=== PATIENT | male | born 1990 | race Caucasian/White ===

== ENCOUNTER 2022-04-04 07:58 | Day surgery (SDC) | payer OTHER ==
[2022-04-04] VITALS (120 sets, daily range): BP systolic 81–137; BP diastolic 35–104
[~2022-04-04] VITALS: Ht 172.7 cm; Wt 96.0 kg
--- NOTE | 2022-04-04 07:47 | NUR ---
PPT ARRIVES AMBULATORY TO FLOOR WITH PARENTS IN ATTENDANCE. UPDATED ON POC AND ORIENTED TO ROOM. INITIATED IV, LABS DRAWN AND EKG PERFORMED. ALL CONSENTS OBTAINED.
--- NOTE | 2022-04-04 08:11 | NUR ---
VS CALLED TO DR. CORTEZ AT THIS TIME. NEW ORDERS RECEIVED WILL MEDICATE WHEN MEDICATIONS PROFILED AND CONTINUE TO MONITOR.
[2022-04-04 08:30] LABS: HEMATOCRIT 41.9 % (39.0-50.0); HEMOGLOBIN 14.7 g/dl (14.0-18.0); IMMATURE GRANULOCYTES 0.1 % (0.0-5.0); MEAN CELL VOLUME 86.7 fL CALC (80.0-100.0); MEAN CORPUSCULAR HGB 30.4 pG CALC (26.0-32.0); MEAN CORPUSCULAR HGB CONC 35.1 g/dL CAL (32.0-36.0); NEUT# 3.15 thou/uL (1.82-7.42); RED BLOOD COUNT 4.83 mill/uL (4.70-6.10); RED CELL DISTRI WIDTH 12.1 % (11.5-15.5)
[2022-04-04 08:43] LABS: ALBUMIN 4.6 g/dL (3.2-5.0); ALKALINE PHOSPHATASE 66 u/l (38-126); ANION GAP 13 (6-22 (CALC)); BILIRUBIN, TOTAL 0.6 mg/dL (0.0-1.4); BUN 16 mg/dL (9-20); BUN/CREATININE RATIO 14 (12-20 (CALC)); CARBON DIOXIDE 28 mmol/l (22-30); CHLORIDE 103 mmol/l (95-108); CREATININE 1.1 mg/dL (0.7-1.3); GFR FOR AFR.AMER. > 60 ML/MIN (>=60 (CALC)); GFR OTHER RACES > 60 ML/MIN (>=60 (CALC)); SGOT/AST 24 u/l (17-59); SODIUM 140 mmol/l (137-146); TOTAL PROTEIN 7.6 g/dL (6.3-8.2)
--- NOTE | 2022-04-04 09:45 | NUR ---
PT SITTING UP IN BED CALM AND COOPERATIVE. REPEAT VS OBTAINED AND COMMUNICATED TO DR CORTEZ, NEW ORDERS RECEIVED. IVF BOLUS CONTINUES. SITE PATENT,
--- NOTE | 2022-04-04 09:50 | NUR ---
REPEAT VS CALLED TO DR. CORTEZ. NEW ORDERS RECEIVED AT THIS TIME.
[2022-04-04] MEDS ORDERED: LEVOTHYROXIN150 MCG PO (10:27)
--- NOTE | 2022-04-04 12:05 | NUR ---
Induction Note Patient to [facility]R procedure room. Time out performed at 1210. Patient placed on monitors, Amos hugger, bilateral wrist restraints applied for ET tube protection. Versed 5mg given IV push at 1211 Tourniquet applied to RT arm Lidocaine 100mg given [id number] IV push followed by Rocoronium 10mg at 1211 IV push and held for 90 seconds. Propofol bolus of 120mg given at 1213 IV push. Succinylcholine 80mg given IV push at 1214. Smooth intubation with 7.5 ETT. Positive CO2. Positive Auscultation for air exchange. Patient placed on ventilator for spontaneous ventilation. Placed on Propofol IV drip at 77ML/HR . OG inserted. Positive air on auscultation. Positive gastric content. Stomach washed at this time. Naltrexone 75mg given via OG tube given via OG Tube. OG clamped for 45 minutes. Will monitor patient for symptoms of withdrawal and adjust propfol accordingly. og CLOSED AT 1230
--- NOTE | 2022-04-04 13:15 | NUR ---
OG open note OG open at this time. Gastric content draining into drainage bag. OG to drain for 45 minutes. Propofol will be titrated down based on patient.
--- NOTE | 2022-04-04 14:00 | NUR ---
OG close note Stomach washed at this time. Naltrexone 50 mg with Clonidine 0.2 mg via OG tube. OG will be clamped for 45 minutes.
--- NOTE | 2022-04-04 14:45 | NUR ---
OG open note OG open at this time. Gastric content draining into drainage bag. OG to drain for 45 minutes. Propofol will be titrated down based on patient. Cleansed of large loose light brown stool.
--- NOTE | 2022-04-04 15:30 | NUR ---
OG close note Stomach washed at this time. Naltrexone 25 mg with Clonidine 0.2 mg via OG tube. OG will be clamped for 45 minutes. temp 98.5
[2022-04-04] MEDS ORDERED: KLONOPIN2 MG PO (16:55)
[2022-04-04] MEDS ORDERED: CLONIDINE0.1 MG PO (16:55)
[2022-04-04] MEDS ORDERED: NALTREXONE50 MG PO (16:55)
--- NOTE | 2022-04-04 17:00 | NUR ---
indwelling catheter removed, 600cc clear yellow urine.
--- NOTE | 2022-04-04 17:56 | NUR ---
Extubation note Closing medications given Benadryl 50mg IV push, Decadron 10mg IV push,Magnesium 4 grams IV, Zofran 8mg IV push, Octreotide 100mcg SC. Stomach washed out prior to extubation. Suctioned gastric content. OG removed. Patient extubated. Propofol Discontinued. Wrist restraints removed. Amos hugger Removed. See ANR Moderate sedate recovery record for further notes and assessment.
--- NOTE | 2022-04-04 19:15 | NUR ---
bedside report to landen steele. pt rousable to voice. yawning, Pt with NRB at this time o2 sat 100%.
--- NOTE | 2022-04-04 19:40 | NUR ---
PATIENT RESTING IN BED. O2 AT 5L VIA NC. NO DISTRESS NOTED AT THIS TIME. NO SIGNS OF PAIN. PAIN OBSERVED TAKING DEEP BREATHS AND YAWNING AT TIMES. OXYGEN SATS REMAIN IN THE HIGH 90S. PATIENT REMAINS VERY DROWSY. INCONTINENCE X1 OF BM NOTED. KENDALL CARE PROVIDED. RESPIRATORY WAS IN ROOM TO EVAL PATIENT. BED REMAINS IN LOW POSITION. BED ALARM ACTIVE DUE TO SAFETY REASONS.
--- NOTE | 2022-04-05 00:03 | NUR ---
PATIENT ASLEEP IN BED ON HIS RIGHT SIDE. NO SIGNS OF DISTRESS OR PAIN NOTED. PATIENT SATTING 98% ON RA. BED REMAINS IN LOW POSITION. CALL ROUSE IN REACH. BED ALARM REMAINS ACTIVE.
--- NOTE | 2022-04-05 01:54 | NUR ---
AMBULATED TO BATHROOM IN ROOM WITH BROADBAND TECHNICIAN. STABLE ON FEET. PATIENT VOIDED AND HAD LOOSE BM.
[2022-04-05 03:48] VITALS: BP 99/42
[2022-04-05 03:49] VITALS: BP 96/45
--- NOTE | 2022-04-05 05:00 | NUR ---
PATIENT HAD ANOTHER BM. FURNITURE DETAILER IN ROOM CHANGING PATIENT. PATIENT ALERT. OBEYS COMMANDS. NO COMPLAINTS VOICED AT THIS TIME.
[2022-04-05 05:11] LABS: HEMATOCRIT 37.3 % (39.0-50.0); HEMOGLOBIN 13.5 g/dl (14.0-18.0); IMMATURE GRANULOCYTES 0.2 % (0.0-5.0); MEAN CELL VOLUME 84.6 fL CALC (80.0-100.0); MEAN CORPUSCULAR HGB 30.6 pG CALC (26.0-32.0); MEAN CORPUSCULAR HGB CONC 36.2 g/dL CAL (32.0-36.0); NEUT# 10.55 thou/uL (1.82-7.42); RED BLOOD COUNT 4.41 mill/uL (4.70-6.10); RED CELL DISTRI WIDTH 11.9 % (11.5-15.5)
[2022-04-05 05:27] LABS: ALBUMIN 4.2 g/dL (3.2-5.0); ALKALINE PHOSPHATASE 53 u/l (38-126); ANION GAP 14 (6-22 (CALC)); BILIRUBIN, TOTAL 0.7 mg/dL (0.0-1.4); BUN 14 mg/dL (9-20); BUN/CREATININE RATIO 13 (12-20 (CALC)); CARBON DIOXIDE 20 mmol/l (22-30); CHLORIDE 110 mmol/l (95-108); GFR FOR AFR.AMER. > 60 ML/MIN (>=60 (CALC)); GFR OTHER RACES > 60 ML/MIN (>=60 (CALC)); MAGNESIUM 2.1 mg/dL (1.6-2.3); SGOT/AST 25 u/l (17-59); SODIUM 140 mmol/l (137-146); TOTAL PROTEIN 6.6 g/dL (6.3-8.2)
--- NOTE | 2022-04-05 05:36 | NUR ---
PATIENT TOOK HIS SYNTHROID AND BEFORE EVEN SWALLOWING HE THREW UP MEDICATION.
[2022-04-05 07:57] VITALS: BP 124/58
--- NOTE | 2022-04-05 08:00 | NUR ---
REPORT RECEIVED FROM ADVERTISING SALES MANAGER RN. PATIENT IN BED SLEEPING IN A LOW SEMI-FUENTES'S POSITION. ASSESSMENT COMPLETED. PATIENT IS A&O. PATIENT THREW UP MORNING MEDS. PHENERGAN WAS ADMINISTERED VIA IV PER PRN ORDER FOR NAUSEA. STARTED NEW IV SITE ON RITGHT AC AND REMOVED OLD IV IT WAS OCCLUDED. BED IN LOWEST POSITION, ALARM ACTIVATED. CALL LIGHT AND BEDSIDE TABLE WITHIN REACH.
[2022-04-05 10:22] VITALS: BP 107/65
[2022-04-05 10:24] VITALS: BP 107/65
--- NOTE | 2022-04-05 12:00 | NUR ---
PATIENT RESTING IN BED, SLEEPING. NO SIGNS OF DISTRESS NOTED OR VERBALIZED AT THIS TIME. BED IN LOWEST POSITION BED ALARM ACTIVATED. CALL LIGHT WITHIN REACH.
--- NOTE | 2022-04-05 15:56 | NUR ---
Discharge instructions given. Patient verbalizes understanding of same. Discharged in stable condition via Ambulatory to home with staff. All belongings sent with pt.
== END 2022-04-05 15:56 | disposition home or self-care (01) | DRG 897 ==
LOC: ANR 07:58 → MS2 08:00 → ANR 12:46
PROVIDERS: ATTEND Anesthesiology
DX: F11.20 Opioid dependence, uncomplicated (principal)